=== PATIENT | male | born 1945 | race Caucasian/White ===

== ENCOUNTER 2017-11-18 06:06 | Inpatient (IN) | payer MEDICARE ==
[2017-11-06 09:26] LABS: HEMATOCRIT 39.9 % (42.0-52.0); HEMOGLOBIN 13.8 gm/dL (14.0-18.0); MCH 32.5 pg (26.0-34.0); MCHC 34.6 g/dL (28.0-37.0); MCV 93.9 fL (80.0-100.0); MPV 7.7 fl. (7.2-11.1); RBC 4.25 mil/uL (4.50-6.00); WBC 5.5 thou/uL (4.0-11.0)
[2017-11-06 09:30] LABS: URINE BILIRUBIN NEGATIVE (Negative); URINE BLOOD NEGATIVE (Negative); URINE CLARITY CLEAR; URINE COLOR YELLOW; URINE GLUCOSE-RANDOM NEGATIVE (Negative); URINE KETONES NEGATIVE (Negative); URINE LEUKOCYTES-REFLEX NEGATIVE (Negative); URINE NITRITE-REFLEX NEGATIVE (Negative); URINE PROTEIN NEGATIVE (Negative); URINE SPECIFIC GRAVITY 1.025 (1.005-1.030); URINE UROBILINOGEN 0.2 E.U./dl (0.2-1.0)
[2017-11-06 09:34] LABS: INR 1.1; PROTIME 10.4 Seconds (9.20-11.50)
[2017-11-06 09:41] LABS: ALBUMIN 3.8 g/dL (3.4-5.0); CREATININE 0.9 mg/dL (0.6-1.3); POTASSIUM 3.6 mmol/L (3.5-5.1); TOTAL BILIRUBIN 0.6 mg/dL (<0.1-1.0); TOTAL PROTEIN 7.4 g/dL (6.4-8.2)
--- NOTE | 2017-11-06 10:52 | EKG ---
[place] [address] ELECTROCARDIOGRAM REPORT Name: ADDY WORLEY Room: PRE IN [facility].#: [id number] Admission: Attend Phys: Falguni Cantu Discharge: Date of : 49 Report #: [id number] THIS REPORT FOR: //name// [facility] Test Date: 2017-11-06 Test Time: 09:45:45 Pat Name: ADDY WORLEY Department: Room: Gender: M [employer] Survey Worker: : 1945 Requested By: Nick Pierce Order Number: [id number] Reading MD: Tyler Stoddard Measurements Intervals [place] Rate: 56 P: 28 WA: 255 QRS: 51 QRSD: 103 T: -7 QT: 409 QTc: 395 Interpretive Statements Sinus rhythm Prolonged WA interval Borderline T abnormalities, inferior leads No previous ECG available for comparison Electronically Signed On 11-06-2017 10:51:53 CDT by Tyler Stoddard [email or web address] <ELECTRONICALLY SIGNED> By: Tyler Stoddard MD, [facility] 11/06/17 1051 0945 0945 Tyler Stoddard MD, FACC /EPI
[~2017-11-18] VITALS: Ht 182.9 cm; Wt 136.1 kg
[~2017-11-18 06:06] MED LIST: ASPIR 8181 MG PO; CARDURA4 MG PO; CARVEDILOL3.125 MG PO; CENTRUM SILVER1 EAC2 PO; COZAAR 50 MG TA50 M2 PO; HYDROCHLOROTHIA25 M2 PO; MINIPRESS2 MG PO; MOBIC15 MG PO; NEURONTIN 300300 M1 PO; PROSCAR 5MG TABL5 MG PO; VITAMIN C1000 MG PO; VITAMIN D1000 UNI1 PO; ZOCOR20 MG PO; ZOLOFT50 MG PO
[2017-11-18 09:15] VITALS: BP 138/75
--- NOTE | 2017-11-18 16:17 | NUR ---
PATIENT ARRIVED ON THE UNIT AT APPROXIMATELY 1500. ALERT AND ORIENTED X4. ASSESSMENT COMPLETED AND CHARTED. VSS ON 3 LITERS 02. FLUIDS STARTED AND INFUSING ORDERED, PAIN MEDICATION GIVEN. PATIENT AND FAMILY ORIENTED TO THE ROOM, PATIENT INSTRUCTED TO USE THE CALL LIGHT FOR ANY NEEDS TO PREVENT FALLS. CALL LIGHT PLACED WITHIN REACH. NURSING WILL CONTINUE TO MONITOR.
--- NOTE | 2017-11-18 17:37 | NUR ---
PATIENT REMAINS ALERT AND ORIENTED X4. VITALS REMAIN STABLE ON 3 LITERS 02. PATIENT HAS HAD NO COMPLAINTS OF NAUSEA. PAIN HAS BEEN MANAGED WITH PAIN MEDICATION. FLUIDS AND ANTIBIOTICS INFUSING ORDERED. PATIENTS HAS BEEN AT BEDSIDE AND WILL STAY THE NIGHT. HOURLY ROUNDS HAVE BEEN MAINTAINED. CALL LIGHT IS WITHIN REACH. NURSING WILL CONTINUE TO MONITOR.
[2017-11-18 20:40] VITALS: BP 132/71
[2017-11-18 23:58] VITALS: BP 122/65
[2017-11-19 04:10] VITALS: BP 129/64
[2017-11-19 04:24] LABS: HEMATOCRIT 33.2 % (42.0-52.0); HEMOGLOBIN 11.6 gm/dL (14.0-18.0)
--- NOTE | 2017-11-19 05:18 | NUR ---
PATIENT SLEPT WELL THROUGHOUT THE NIGHT WITHOUT ANY ISSUES. PAIN WELL CONTROLLED WITH ORAL PAIN MEDICATION NEEDED AND CHARTED. VSS ON 3L 02 VIA NASAL CANNULA AND CAPNO IN PLACE. DRESSING TO LEFT KNEE IS C/D/I, KELSI HOSE, AND SCD'S IN PLACE. HEMOVAC TO LEFT KNEE IS IN PLACE WITH MODERATED AMOUNT OF SEROSANGUINOUS DRAINAGE. PATIENT IS VOIDING ADEQUATELY USING BEDSIDE URINAL. IS AT BEDSIDE IN ROOM. PATIENT INSTRUCTED TO USE CALL LIGHT WHEN NEEDING ASSISTANCE. HOURLY ROUNDS MADE. WILL CONTINUE WITH PLAN OF CARE AND NURSING TO MONITOR.
[2017-11-19 08:20] VITALS: BP 121/63
--- NOTE | 2017-11-19 10:28 | NUR ---
Hemovac drain removed per orders. Pt tolerated well. Drain with 125 ml serous drainage. Pt tolerated well.
[2017-11-19 11:45] VITALS: BP 113/62
--- NOTE | 2017-11-19 15:00 | NUR ---
SPOKE WITH PT.AND . HE SAID HE PLANS TO GO HOME WITH HH AT DISCHARGE. HE CHOSE [email or web address]. DISCUSSED CPM AND POLAR PACK.HE HAS A WALKER HERE IN ROOM FOR THERAPIST TO LOOK AT. HE HASN'T HAD TO USE IT PREOP. HE IS NORMALLY INDEPENDENT WITH EVERYTHING. DISCUSSED MARIA DE JESUS AND CM WOULD CALL IN PRESCIPTION TO CHECK COPAY. REFERRAL MADE TO [facility] .
--- NOTE | 2017-11-19 16:45 | NUR ---
RECIEVED O.T. EVAL AND TX ORDERS. WILL DEFER TO P.T. AND NURSING AT THIS TIME. PLEASE ORDER FURTHER O.T. SERVICES IF NEEDED.
[2017-11-19 16:51] VITALS: BP 113/62
--- NOTE | 2017-11-19 17:53 | NUR ---
ASSUMED CARE OF PATIENT AFTER MORNING REPORT. ALERT AND ORIENTED X4. ASSESSMENT COMPLETED AND CHARTED. VSS ON 2 LITERS 02. PATIENT HAS HAD NO COMPLAINTS OF NAUSEA THIS SHIFT. PAIN HAS BEEN MANAGED WITH MEDICATION. PATIENT CLEARED TO TITRATE OFF OF 02 BY RT TODAY AND VITAL REMAIN STABLE. PATIENT HAS WORKED WELL WITH THERAPY TODAY AND IS PROGRESSING TOWARDS GOALS. HOURLY ROUNDS MAINTAINED. CALL LIGHT WITHIN REACH. NURSING WILL CONTINUE TO MONITOR.
[2017-11-19 21:25] VITALS: BP 133/70
[2017-11-20 00:21] VITALS: BP 128/66
[2017-11-20 04:05] VITALS: BP 125/54
[2017-11-20 04:18] LABS: HEMATOCRIT 32.1 % (42.0-52.0); HEMOGLOBIN 11.2 gm/dL (14.0-18.0)
--- NOTE | 2017-11-20 05:20 | NUR ---
PATIENT ALERT AND ORIENTED. VITALS STABLE. RA. CPAP AT HS. PAIN CONTROLLED WITH PO MEDICATION. VOIDING PER URINAL. LEFT KNEE DRERSSING C/D/I. UP WITH ASSIST X 1 TO BSC. BED ALARM IN USE. HOURLY ROUNDS. NURSING WILL CONTINUE TO MONITOR.
[2017-11-20 08:54] VITALS: BP 115/63
--- NOTE | 2017-11-20 10:51 | S ---
[place] [address] SURGICAL PATH RPT PROCEDURE Name: YOSI VIRGEN Room: [address] IN [facility].#: [id number] Admission: 11/18/17 Date of : 49 Discharge: Report #: [id number] Path Case #: [id number] PATHOLOGY REPORT COLLECTION DATE: 11/18/2017 RECEIVED DATE: 11/18/2017 SUBMITTING PHYS: Dr. Nick Pierce II OTHER PHYS: Dr. Jorge A Villegas SPECIMEN(S) RECEIVED: A.Medial femoral condyle bone cyst left knee B.Left knee bone and tissue * * * * * * * * * * * * FINAL DIAGNOSIS: A. Medial femoral condyle bone cyst, left knee: - Compatible with ganglion cyst with mild acute and chronic inflammation and stromal hemosiderin deposition indicative of remote hemorrhage. B. Left knee bone and tissue, total knee replacement: - Benign synovium and meniscus and benign bone and cartilage with severe degenerative changes and cystic change consistent with intraosseous ganglion. (ZACK:mm; 11/20/2017) PATHOLOGIST: Davon Brown M.D. REPORT ELECTRONICALLY SIGNED BY: Davon Brown M.D. DATE/TIME: 11/20/2017 10:51 * * * * * * * * * * * * GROSS PATHOLOGY: A. The specimen is received in formalin labeled "Yosi Virgen, medial femoral condyle bone cyst left knee". Received are multiple segments of pink-baker partially cystic soft tissue measuring 3.8 x 2.5 x 1.1 cm in aggregate dimensions. There is a moderate amount of adherent clear mucoid material. The specimen is submitted representatively in cassette A1. B. Received in formalin labeled "Yosi Virgen, left knee bone and tissue," are multiple segments of bone, including tibial plateau, measuring 10.5 x 8.8 x 3.2 cm in aggregate dimensions admixed with soft tissue; meniscus is present. The specimen shows focal eburnation of the articular surfaces. Strip Polisher sections of bone and soft tissue are submitted in cassette B1, following decalcification. (CAA; 11/19/2017) [place] [address] SURGICAL PATH RPT PROCEDURE Name: YOSI VIRGEN Room: [address] IN [facility].#: [id number] Admission: 11/18/17 Date of : 49 Discharge: Report #: [id number] Path Case #: [id number] CLINICAL HISTORY: Left knee degenerative joint disease INITIAL CPT CODE(S): A; 75043 B; 90298, 82047 Professional services performed by [facility] at [facility], [address] [place] [address] [place] [address]. Technical services performed by [facility] at [address] [place] [address], [address], [place] [address]. [facility] [address] [address] PHONE: [phone] DIRECTOR: Beni Bonner M.D. * * * END OF REPORT * * *
[2017-11-20 16:00] VITALS: BP 124/62
--- NOTE | 2017-11-20 16:27 | NUR ---
PRESCRIPTION FOR XARELTO CALLED INTO PT.'S PHARMACY WRITTEN. COPAY FOR 12 TABS IS $181. INFORMED PT.AND . THEY WILL DISCUSS TO DECIDE IF THEY WANT TO PAY THIS. WILL CHECK WITH HIM IN AM.
[2017-11-20 20:15] VITALS: BP 155/78
--- NOTE | 2017-11-20 21:19 | NUR ---
ASSUMED CARES OF PT AT 0700. PT IN BED, BED IN LOW AND L0CKED POSITION. CPAP IN PLACE. CALL BUTTON AND PERSONAL ITEMS IN PT REACH. FALL PRECAUTIONS IN PT REACH. PT A&O X4, HRRR PER AUSCULTATION, LCTAB, AFEBRILE, VSS ON RA, PERRLA, SKIN INTACT, LEFT MEPILEX DRESSING ON KNEE SURGICAL SITE, C/D/I, NO S/SX OF INFECTION. PT UP ONE ASSIST WITH GB TO BSC. RIGHT FA IV PATENT TO FLUSH/SALINE LOCKED. ENCOURAGED AND EDUCATED ON USE OF I.S. FOR BREATHING/LUNG FUNCTION. CPM GRADUAL INCREASE, PT PROGRESSING TOWARDS GOAL. POLAR PACK IN PLACE. FOOT PUMPS IN PLACE WHILE IN BED. HOURLY ROUNDING COMPLETED. REPORT TO ASSISTED LIVING HOME DIRECTOR FOR CONTINUED CARES. PT STABLE, SMILING, TALKATIVE AT SHIFT CHANGE, SPOUSE AT BEDSIDE.
[2017-11-21 00:16] VITALS: BP 121/61
[2017-11-21 04:32] VITALS: BP 109/60
--- NOTE | 2017-11-21 04:55 | NUR ---
PATIENT REMAINED ALERT AND ORIENTED X4 THROUGHOUT SHIFT. TRANSFERRING WITH ONE ASSIST TO THE RESTROOM. POLAR PACK IN PLACE. TOLERATING CPM THROUGHOUT SHIFT. TEDS IN PLACE TO BILAT LEGS. PATIENTS MEDICATIONS HAVE BEEN STORED IN THE BLUE BIN IN THE MED ROOM. PATIENT HAD A TEMP OF 102.8, ENCOURAGED PATIENT TO COUGH, DEEP BREATH AND USE IS. WAS GIVEN TYLENOL PER ORDER AND RECHECKED TEMP WHICH HAD COME DOWN TO 98.0. PAIN MANAGED WITH PO MEDICATION. RESTING COMFORTABLY THROUGH THE NIGHT. IV PATENT AND SALINE LOCKED IN THE RIGHT FOREARM. FALL PRECAUTIONS REMAIN IN PLACE. CALL LIGHT WITHIN REACH. NURSING WILL CONTINUE TO MONITOR.
[2017-11-21 09:01] VITALS: BP 117/63
[2017-11-21] MEDS ORDERED: ELIQUIS2.5 MG PO (10:43)
[2017-11-21 10:44] VITALS: BP 113/62
[2017-11-21] MEDS ORDERED: COLACE100 MG PO (10:44)
[2017-11-21] MEDS ORDERED: XARELTO10 MG PO (10:47)
[2017-11-21] MEDS ORDERED: PERCOCET PO (10:48)
--- NOTE | 2017-11-21 11:24 | NUR ---
ASSUMED CARES OF PT AT 0700. PT IN BED, BED IN LOW LOCKED POSITION, CPM ACTIVE AND ON. CALL BUTTON AND PERSONAL ITEMS IN PT REACH. SPOUSE AT BEDSIDE. PT A&O X4, FRIENDLY, COOPERATIVE, SMILING, TALKATIVE, COMPLIANT, MOTIVATED TO GET BETTER. HRRR PER AUSCULTATION, LCTAB, PT UP WITH WALKER SBA TO BATHROOM. LEFT KNEE MEPILEX DRESSING C/D/I. NO S/SX OF INFECTION. POLAR PACK IN PLACE. ENCOURAGING BM WITH PO MEDS AND FLUIDS, +4 DAYS SINCE LAST BM. FOOT SCD'S IN PLACE. KELSI HOSE BILATERALLY. IV IN RFA SALINE LOCKED/PATENT TO FLUSH. PAIN IN LEFT KNEE SOMEWHAT CONTROLLED BY PAIN MEDS. CPAP WORN AT HS AND OCC. DURING DAY SHIFT WHILE IN BED. VSS ON RA, AFEBRILE, PERRLA. PT PROGRESSING TOWARDS GOAL ON POST OP DAY 3. PT MAY DISCHARGE HOME WITH SPOUSE. HOURLY ROUNDING CONTINUES, WILL CONTINUE TO MONITOR PT PROGESS, STATUS AND PAIN.
--- NOTE | 2017-11-21 12:29 | NUR ---
SPOKE WITH PT.AND ABOUT COPAYS ON XARELTO AND ELIQUIS. XARELTO COPAY IS $181. COPAY FOR ELIQUIS IS $210. THE ELIQUIS COUPON WE HAVE IS ONLY FOR 30 DAY PRESCRIPTIONS AND COMMERCIAL INSURANCE. THEY PREFER TO GET THE XARELTO FILLED. CM CALLED [facility] BACK AND REORDERED XARELTO PRESCRIPTION WRITTEN. REMINDED , SHE WILL HAVE TO TAKE PRESCRIPTIONS TO PHARMACY TO GET FILLED SINCE THEY ARE NARCCOTICS. PT.TO HAVE AFTERNOON THERAPY AND THEN DISCHARGE HOME. NOTIFIED [facility] AND FAXED DISCHARGE ORDERS. DISCUSSED WITH MEHRAN DIAS.
[2017-11-21 16:30] VITALS: BP 113/62
--- NOTE | 2017-11-21 18:41 | NUR ---
PT IV REMOVED. PREPARED FOR DISCHARGE. PERSONAL BELONGINGS PACKED, ROOM CHECKED. DISCHARGE, STROKE, MEDICATION EDUCATION COMLETED. QUESIONS ANSWERED. DOCUMENTS SIGNED. PT ESCORTED VIA WC WITH NURSING STAFF TO SPOUSE IN CAR TO GO HOME WITH HOME HEALTH FOR THERAPY. DISCHARGE COMPLETED AT 1630.
--- NOTE | 2017-12-02 08:30 | OP ---
[address] [address] OPERATIVE REPORT Name: ADDY WORLEY Russell Room: [address] IN .R.#: [id number] Admission: 11/18/17 Attend Phys: Falguni Cantu Discharge: 11/21/17 Date of : 49 Report #: [id number] THIS REPORT FOR: //name// CC: Nick Maharaj DATE OF SERVICE: 11/18/2017 PREOPERATIVE DIAGNOSIS: Left knee osteoarthritis. POSTOPERATIVE DIAGNOSIS: Left knee osteoarthritis. PROCEDURE: Left total knee arthroplasty with Navio. SURGEON: Nick Pierce II, DO [employer]AT[employer] INSTALLER: SATHYA Guevara ANESTHESIA: General endotracheal. ESTIMATED BLOOD LOSS: 50 mL. ANTIBIOTICS: Ancef preoperatively. DRAINS: Medium Hemovac. COMPLICATIONS: None. DISPOSITION: Stable to recovery room. IMPLANTS: Listed in the operative record and progress note. BRIEF HISTORY: The patient was seen in the preoperative area. Preoperative H and P was performed. Site was marked, questions were answered, risks and benefits discussed with the patient in detail about surgery. The patient wished to proceed and assumed all risks. DESCRIPTION OF PROCEDURE: The patient was taken to the operative suite, placed supine on the operating table. He was given appropriate anesthesia. A well-padded tourniquet applied to the upper thigh, was inflated to 300 mmHg after gravity exsanguination. The operative knee was sterilely prepped and drape. Surgery began by a midline incision. This was carried down to subcutaneous tissues. A medial parapatellar arthrotomy was performed, carried down to bone. The patella was then everted and excess soft tissue removed from around the femur as well as osteophytes. There was also osteophyte removed [address] [address] OPERATIVE REPORT Name: BRUNILDAADDY L Room: [address]#: [id number] Admission: 11/18/17 Attend Phys: Falguni Cantu Discharge: 11/21/17 Date of : 49 Report #: [id number] around the tibia. The tracker alignment pins were then placed in the tibia and femur in appropriate fashion. Tracker guides were then placed and the knee was registered in appropriate fashion with the vLex robotic assistance device. After appropriate alignment had been performed and confirmed, the robot was activated and appropriate peg holes were drilled with robotic assistance utilizing a hand piece and checked for verification. The 4-in-1 cutting block was then applied to the femur. It was then cut in appropriate fashion. Excess bone was removed. The tibia was then exposed and excess meniscus removed. Retractor was placed on the collateral ligaments. The tibial cutting block was then applied, pinned into appropriate position, checked with the robotic assistance for alignment and slope and appropriate cut was made. Tibial bone was removed. Tibial base plate was then applied to check for rotational alignment with a drop mahesh in appropriate position. It was then applied and box cut was reamed. This was then trialled with appropriate spacer, which showed excellent fit and fill and excellent stability of the knee through all range of motion with excellent alignment and gap on the robotic assistance device. The patella was reamed in appropriate fashion, appropriate size, 3 peg holes were drilled. It was then trialed and showed excellent flexion and extension, excellent tracking of the patella from the groove. At this time, the trials and trackers were then removed. The tibia was punched in appropriate fashion. Bone ends were cleansed with Pulsavac irrigation and cement was mixed to apply the final implant. These were then malleted in position, held the knee in extension and compressed, allowed the cement to cure. After it cured, excess removed using [place] and osteotome. The wound was then copiously irrigated and the final spacer was then malleted in position. Tourniquet was deflated. Hemostasis was obtained with electrocautery. The pain cocktail was injected. PRP gel was sprayed throughout the internal aspects of the knee. A medium Hemovac drain was then applied. Capsule was closed with #2 FiberWire and 1 Vicryl in [id number] fashion. Skin was closed with 2-0 Vicryl and running 3-0 Monocryl. Dermabond and dressing applied. Gilberto wrap and PolarCare were then applied. The patient transferred to recovery in stable condition. Counts were correct throughout the procedure. <ELECTRONICALLY SIGNED> By: Nick Pierce II, DO 12/02/17 0830 [id number] [id number] Pierce II, DO /nt
== END 2017-11-21 16:30 | disposition home health service (06) | DRG 470 ==
LOC: M.PRE 06:06 → M.TBA 08:26 → M.ORTHSURG 08:26 → M.PRE 10:29 → M.ORTHSURG 15:08
PROVIDERS: Orthopaedic Surgery; ADMIT Internal Medicine
PROC: 0SRD0J9 Replacement of Left Knee Joint with Synthetic Substitute, Cemented, Open Approach (ICD-10-PCS; principal; 2017-11-18)
DX: M17.12 Unilateral primary osteoarthritis, left knee (principal); Z68.41 Body mass index [BMI] 40.0-44.9, adult; I10 Essential (primary) hypertension; N40.0 Benign prostatic hyperplasia without lower urinary tract symptoms; F32.9 Major depressive disorder, single episode, unspecified; E66.01 Morbid (severe) obesity due to excess calories; Z88.1 Allergy status to other antibiotic agents; Z87.891 Personal history of nicotine dependence; Z72.89 Other problems related to lifestyle